=== PATIENT | female | born 1935 | race Caucasian/White ===

== ENCOUNTER 2018-03-27 08:00 | Inpatient (IN) | payer OTHER ==
[~2018-03-27] VITALS: Ht 129.5 cm; Wt 59.0 kg
[~2018-03-27 08:00] MED LIST: ATORVASTATIN CA20 MG; INTEGRA PLUS C1 EACH PO; NORVASC2.5 M1; OXYC1TAB9 PO; PROTONIX20 MG; SYNTHROID88 MCG; TOPROL XL50 M1; TRAMADOL HCL25 GM; XARELTO10 MG PO
[2018-03-27] MEDS ORDERED: IRBESARTAN300 MG PO (10:27)
[2018-04-06] MEDS ORDERED: INTEGRA PLUS C1 EACH PO (08:35)
[2018-04-06] MEDS ORDERED: ELIQUIS2.5 MG PO (08:35)
[2018-04-06] MEDS ORDERED: OXYC1TAB9 PO (08:36)
== END 2018-04-06 14:02 | disposition home or self-care (01) | DRG 470 ==
LOC: O/R 04-03 05:45 → SURH 04-03 05:45 → SURG 04-03 07:15 → SURH 04-03 10:59
PROVIDERS: Orthopaedic Surgery Sports Medicine
PROC: 0SRD0J9 Replacement of Left Knee Joint with Synthetic Substitute, Cemented, Open Approach (ICD-10-PCS; principal; 2018-04-03 07:15)
DX: M17.12 Unilateral primary osteoarthritis, left knee (principal); I49.8 Other specified cardiac arrhythmias; I10 Essential (primary) hypertension; E03.8 Other specified hypothyroidism; Z88.0 Allergy status to penicillin